=== PATIENT | female | born 1955 | race Caucasian/White ===

== ENCOUNTER 2017-08-10 08:13 | Inpatient (IN) | payer OTHER ==
[~2017-08-10] VITALS: Ht 160 cm; Wt 65.5 kg
[2017-08-10 10:16] LABS: microscopic required? NO
[2017-08-10 10:36] LABS: UA SPECIFIC GRAVITY 1.015 (1.005-1.035); urine erythrocyte NEGATIVE (NEGATIVE)
[2017-08-10 10:38] LABS: CARBON DIOXIDE 30.8 mmol/L (21-32); CHLORIDE SERUM 101 mmol/L (98-107); CREATININE SERUM 0.8 mg/dL (0.6-1.0); GFR1 > 60 mL/min; GLUCOSE SERUM 104 mg/dL (74-106); POTASSIUM SERUM 3.9 mmol/L (3.5-5.1); SODIUM SERUM 140 mmol/L (136-145)
[2017-08-10 10:44] LABS: ALBUMIN 4.1 g/dL (3.4-5.0); ALKALINE PHOSPHATASE 106 U/L (46-116); ALT/SGPT 27 U/L (14-59); AST/SGOT 16 U/L (15-37); BILIRUBIN TOTAL 0.8 mg/dL (0.20-1.00)
[2017-08-10 10:47] LABS: TOTAL PROTEIN, SERUM 8.5 g/dL (6.4-8.2)
[2017-08-10 10:47] LABS: AMPHETAMINE QUAL UR NONE DETECTED (NEG <=1000)
[2017-08-10 10:48] LABS: CK-MB < 0.5 ng/mL (0-3.6); CREATINE KINASE 42 U/L (26-192)
[2017-08-10 10:50] LABS: BASOPHIL % 0.4 % (0-2); PLATELET COUNT 287 x10^3mcL (130-400); RED CELL DISTRIBUTION WIDTH 13.4 % (11.5-14.5)
[2017-08-10 10:53] LABS: FREE T4 1.22 ng/dL (0.76-1.46); FREE THYROXINE INDEX 3.1 ug/dL (1.4-4.5); T3 TOTAL 1.02 ng/mL; T4(THYROXINE) 9.5 ug/dL (4.7-13.3)
[2017-08-10] MEDS ORDERED: DIOVAN320 MG PO (11:09)
[2017-08-10] MEDS ORDERED: AMLODIPINE BES2.5 M1 PO (11:09)
[2017-08-10] MEDS ORDERED: EPZICOM1 TAB (11:09)
[2017-08-10 11:29] LABS: ERYTHROCYTE SED RATE 29 mm/hr (0-30)
[2017-08-10 11:53] VITALS: BP 150/82
[2017-08-10 17:35] VITALS: BP 112/68
[2017-08-10 17:44] VITALS: BP 118/68
[2017-08-10 20:54] VITALS: BP 108/18
[2017-08-10 21:36] VITALS: BP 108/64
[2017-08-11 00:20] VITALS: BP 108/65
[2017-08-11 05:31] VITALS: BP 112/66
[2017-08-11 07:12] LABS: CHOLESTEROL/HDL RATIO 5.3
[2017-08-11 09:03] VITALS: BP 122/67
[2017-08-11 14:13] VITALS: BP 122/77
[2017-08-11 17:13] VITALS: BP 129/76
[2017-08-11 18:08] VITALS: BP 129/76
== END 2017-08-11 18:42 | disposition home or self-care (01) | DRG 203 ==
LOC: ED 08:13 → DU 11:06
PROVIDERS: Internal Medicine Cardiovascular Disease; Specialist
DX: R07.89 Other chest pain (principal); I10 Essential (primary) hypertension; E78.5 Hyperlipidemia, unspecified; E78.00 Pure hypercholesterolemia, unspecified; Z98.891 History of uterine scar from previous surgery; Z82.49 Family history of ischemic heart disease and other diseases of the circulatory system
CPT/HCPCS: 36600; 83880; 84439; 85378; A9500; J2785; Q0092

== ENCOUNTER 2017-12-22 01:03 | Observation (INO) | payer OTHER ==
[~2017-12-22] VITALS: Ht 157.5 cm; Wt 67.6 kg
[~2017-12-22 01:03] MED LIST: AMLODIPINE BES2.5 M1 PO; DIOVAN320 MG PO; EPZICOM1 TAB
[2017-12-22 01:08] VITALS: Ht 157.5 cm; Wt 67.6 kg
[2017-12-22 01:48] LABS: BASOPHIL % 0.8 % (0-2); PLATELET COUNT 352 x10^3mcL (130-400); RED CELL DISTRIBUTION WIDTH 12.3 % (11.5-14.5)
[2017-12-22 01:58] LABS: CALCIUM 8.8 mg/dL (8.5-10.1); CARBON DIOXIDE 27.3 mmol/L (21-32); CHLORIDE SERUM 111 mmol/L (98-107); CREATININE SERUM 0.9 mg/dL (0.6-1.0); GFR1 > 60 mL/min; GLUCOSE SERUM 106 mg/dL (74-106); POTASSIUM SERUM 3.8 mmol/L (3.5-5.1); SODIUM SERUM 142 mmol/L (136-145)
[2017-12-22 02:02] LABS: ALKALINE PHOSPHATASE 143 U/L (46-116); ALT/SGPT 35 U/L (14-59); AST/SGOT 20 U/L (15-37); BILIRUBIN TOTAL 0.7 mg/dL (0.20-1.00); TOTAL PROTEIN, SERUM 7.9 g/dL (6.4-8.2)
[2017-12-22] MEDS ORDERED: ASPIR 8181 MG PO (02:51)
[2017-12-22] MEDS ORDERED: ATORVASTATIN CA40 M1 PO (02:52)
[2017-12-22] MEDS ORDERED: LOSARTAN POTASS25 M1 PO (02:52)
[2017-12-22] MEDS ORDERED: TOPROL XL25 MG PO (02:52)
[2017-12-22 03:38] VITALS: BP 148/84
[2017-12-22 06:43] LABS: BASOPHIL % 0.8 % (0-2); PLATELET COUNT 269 x10^3mcL (130-400); RED CELL DISTRIBUTION WIDTH 13.4 % (11.5-14.5)
[2017-12-22 07:21] LABS: CALCIUM 9.1 mg/dL (8.5-10.1); CARBON DIOXIDE 29.5 mmol/L (21-32); CHLORIDE SERUM 110 mmol/L (98-107); CREATININE SERUM 0.8 mg/dL (0.6-1.0); GFR1 > 60 mL/min; GLUCOSE SERUM 97 mg/dL (74-106); MAGNESIUM 2.5 mg/dL (1.8-2.4); POTASSIUM SERUM 5.3 mmol/L (3.5-5.1); SODIUM SERUM 148 mmol/L (136-145)
[2017-12-22 09:08] LABS: CHOLESTEROL/HDL RATIO 3.4; CK-MB < 0.5 ng/mL (0-3.6); CREATINE KINASE 63 U/L (26-192)
[2017-12-22 09:55] VITALS: BP 141/74
[2017-12-22 11:35] VITALS: BP 132/70
[2017-12-22 12:41] VITALS: BP 130/73
[2017-12-22 14:10] LABS: CK-MB < 0.5 ng/mL (0-3.6); CREATINE KINASE 55 U/L (26-192)
== END 2017-12-22 14:55 | disposition home or self-care (01) | DRG 756 ==
LOC: ED 01:03 → DU 02:25
PROVIDERS: Emergency Medicine; Internal Medicine; Internal Medicine Cardiovascular Disease
DX: F41.1 Generalized anxiety disorder (principal); I45.81 Long QT syndrome; I10 Essential (primary) hypertension; E78.5 Hyperlipidemia, unspecified; R07.89 Other chest pain
CPT/HCPCS: 83880; 85378; G0378; Q0092

== ENCOUNTER 2018-12-30 18:13 | Observation (INO) | payer OTHER ==
[~2018-12-30] VITALS: Ht 157.5 cm; Wt 74.4 kg
[~2018-12-30 18:13] MED LIST changes: +ASPIR 8181 MG PO; +ATORVASTATIN CA40 M1 PO; +LOSARTAN POTASS25 M1 PO; +TOPROL XL25 MG PO
[2018-12-30 18:23] VITALS: Ht 157.5 cm; Wt 74.4 kg
--- NOTE | 2018-12-30 18:26 | NUR ---
EKG IN TRIAGE
[2018-12-30 19:18] LABS: BASOPHIL % 0.6 % (0-2); PLATELET COUNT 272 x10^3mcL (130-400); RED CELL DISTRIBUTION WIDTH 13.1 % (11.5-14.5)
[2018-12-30 19:27] LABS: CALCIUM 9.6 mg/dL (8.5-10.1); CARBON DIOXIDE 27.8 mmol/L (21-32); POTASSIUM SERUM 4.1 mmol/L (3.5-5.1)
[2018-12-30 19:32] LABS: BILIRUBIN TOTAL 0.91 mg/dL (0.20-1.00); TOTAL PROTEIN, SERUM 7.7 g/dL (6.4-8.2)
--- NOTE | 2018-12-30 19:53 | NUR ---
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 PT CONNECTED TO FULL CM.
--- NOTE | 2018-12-30 20:34 | NUR ---
PT AAO4, NO DISTRESS. NO REQUESTS AT THIS TIME.
--- NOTE | 2018-12-30 21:52 | NUR ---
PT IN [facility] IN POSITION OF COMOFRT, RESP E/U, NO DISTRESS AT THIS TIME.
--- NOTE | 2018-12-30 23:16 | NUR ---
REPORT GIVEN TO SAMANTA CRAIG
[2018-12-30 23:39] VITALS: BP 152/69
--- NOTE | 2018-12-30 23:46 | NUR ---
RECEIVED PT FROM ER. PT ADMIT FOR CHEST PAIN, PT IS A/O X4, VERBAL RESPONSIVE, ABLE TO TELL WHAT SHE NEEDS. LUNG SOUND CLEAR BILATERAL, NO COUGH, NO SOB, PT IS ON TELE 12. SB, C/O CHEST PAIN AT LEFT CHEST, RADIATE TO BACK, BOWEL SOUND PRESENT ALL 4 QUADRANTS, NO DISTENTION, NO TEND, PEDAL PULSE PRESENT BOTH FEET, NO EDEMA, IV RIGHT AC, NO LEAKING, NO INFILRATION. ALL ADLS ASSIST. ALL NEED MET, CALL LIGHT IN REACH, WILL CONTINUE TO MONITOR.
--- NOTE | 2018-12-30 23:51 | NUR ---
NO SIGN OF ACUTE DISTRESS NOTED, BREATHING EASY AND NONLABOR SATTING AT 96% RA. C/O BEARABLE CHESTPAIN ,MEDICATED IN ER FOR PAIN. KEPT IN COMFORT, ORIENTED TO ROOM AND DEVICES. WITH ADMISSION ORDERS FROM DR CHIN AND CARRIED OUT. WILL CONTINUE TO MONITOR. CALL LIGHT WITHIN REACH.
--- NOTE | 2018-12-31 01:44 | NUR ---
APPEARS SLEEPING WITH EYES CLOSED, NO SIGN OF DISTRESS NOTED.
--- NOTE | 2018-12-31 05:21 | NUR ---
SLEPT AT LONG INTERVALS DENIES CHEST PAIN THE ENTIRE SHIFT. HR 40'S TO 50'S PATIENT ASSYMPTOMATIC. ALL NEEDS ATTENDED.
[2018-12-31 05:41] VITALS: BP 145/76
[2018-12-31 07:17] LABS: BASOPHIL % 0.7 % (0-2); PLATELET COUNT 232 x10^3mcL (130-400); RED CELL DISTRIBUTION WIDTH 13.3 % (11.5-14.5)
--- NOTE | 2018-12-31 07:40 | NUR ---
RECEIVED PATIENT A/A/OX4. TELE#12; SB; HR = 40'S TO 50'S. HAD EPISODE OF HR 34/MIN. DENIED CHEST PAIN. SKIN WARM/PINK. NO RESP DISTRESS ON RA. O2 SAT 97%. IVHL'D TO [facility]. AMBULATORY. DENIED DIZZINESS. CALL LIGHT IN REACH.
[2018-12-31 07:43] LABS: ALBUMIN 3.7 g/dL (3.4-5.0); ALKALINE PHOSPHATASE 111 U/L (46-116); ALT/SGPT 32 U/L (14-59); AST/SGOT 13 U/L (15-37); BILIRUBIN TOTAL 0.85 mg/dL (0.20-1.00); CARBON DIOXIDE 24.9 mmol/L (21-32); CHLORIDE SERUM 108 mmol/L (98-107); CREATININE SERUM 0.8 mg/dL (0.6-1.0); GFR1 > 60 mL/min; GLUCOSE SERUM 82 mg/dL (74-106); MAGNESIUM 2.2 mg/dL (1.8-2.4); SODIUM SERUM 145 mmol/L (136-145); TOTAL PROTEIN, SERUM 6.8 g/dL (6.4-8.2)
[2018-12-31 07:49] VITALS: BP 159/68
--- NOTE | 2018-12-31 11:02 | NUR ---
DR. NICOLE CAME TO SEE PATIENT AND ORDER OF CARDIO CONSULTATION WITH DR. YOST.
--- NOTE | 2018-12-31 12:11 | NUR ---
ECHOCARDIOGRAM PENDING-PATIENT NOT IN ROOM
--- NOTE | 2018-12-31 12:25 | NUR ---
ROUTINE TREADMILL DONE
[2018-12-31 14:15] VITALS: BP 131/70
[2018-12-31 16:51] VITALS: BP 131/70
--- NOTE | 2018-12-31 18:04 | NUR ---
DENIED CHEST PAIN THIS SHIFT. TRIPONIN (-) X3; TREADMILL STRESS TEST NORMAL WITH DR. YOST. D/C TO HOME PER ORDER. INSTRUCTION GIVEN. IV D/C'D. CONDITION STABLE.
== END 2018-12-31 18:19 | disposition home or self-care (01) | DRG 203 ==
LOC: ED 18:13 → DU 22:29
PROVIDERS: Emergency Medicine; Internal Medicine Pulmonary Disease; ADMIT Internal Medicine Pulmonary Disease
DX: R07.89 Other chest pain (principal); E66.9 Obesity, unspecified; I10 Essential (primary) hypertension; E78.5 Hyperlipidemia, unspecified; Z68.27 Body mass index [BMI] 27.0-27.9, adult
CPT/HCPCS: G0378